=== PATIENT | female | born 1990 | race Caucasian/White ===

== ENCOUNTER 2016-11-21 05:56 | Inpatient (IN) ==
[2016-11-21] MEDS ORDERED: MAG-AL + SIM ORAL LIQUID 30ml PO PRN ×2 (05:59→13:29)
[2016-11-21] MEDS ORDERED: D5LR 1,000 ML IV PRN (05:59)
[2016-11-21] MEDS ORDERED: LR 1,000 ML IV PRN (05:59)
[2016-11-21] MEDS ORDERED: ACETAMINOPHEN 500 MG TABLET PO PRN ×2 (05:59→13:29)
[2016-11-21] MEDS ORDERED: CARBOPROST 250 MCG/ML INJECTION IM PRN (05:59)
[2016-11-21] MEDS ORDERED: OXYTOCIN DRIP 30 UNIT/500 ML ML IV PRN (05:59)
[2016-11-21] MEDS ORDERED: LIDOCAINE 1% (10mg/ml) 2mL INJ PF SDV ID PRN (05:59)
[2016-11-21] MEDS ORDERED: CALCIUM CARBONATE Chewable 500mg TABLET PO PRN ×2 (05:59→13:29)
[2016-11-21] MEDS ORDERED: METHYLERGONOVINE 0.2 MG/ML INJECTION IM PRN (05:59)
--- OUTSIDE RECORDS SUMMARY | 2016-11-21 06:00 | External Medical Summary | Continuity of Care Document ---
:1990 Author Organization [facility] Address [address] [place], [place] [id number] Phone Support Name Relationship Address Phone Nadira Kerr spouse [phone] [place] [address] Allergies, Adverse Reactions, Alerts Substance Reaction Severity Status No Known Drug Allergies Unknown Active Medications Medication Instructions Dosage Effective Dates Status Comments (start - stop) ORAL - Active TABLET Tylenol Extra take 2 tablet by oral 1000 MG - Active Strength 500 mg route every 6 hours tablet as needed Problems Condition Effective Dates (start - stop) Clinical Status Oth related conditions, - third trimester Encounter for suprvsn of normal - , third trimester 35 weeks gestation of - Encounter for suprvsn of normal - , second trimester 19 weeks gestation of - Oth related conditions, - third trimester Encounter for suprvsn of normal - , third trimester 31 weeks gestation of - Oth related conditions, - third trimester Encounter for suprvsn of normal - , third trimester 33 weeks gestation of - Encntr screen for infections w sexl - mode of transmiss Encounter for screening for oth - infec/parastc diseases Encounter for suprvsn of normal - , first trimester Encounter for screening of - mother 11 weeks gestation of - Encounter for suprvsn of normal - , second trimester 16 weeks gestation of - Encounter for suprvsn of normal - , second trimester 19 weeks gestation of - Encounter for suprvsn of normal - , second trimester 23 weeks gestation of - Encounter for suprvsn of normal - , second trimester 25 weeks gestation of - Encounter for suprvsn of normal - , second trimester 27 weeks gestation of - Encounter for suprvsn of normal - , third trimester 37 weeks gestation of - Encounter for suprvsn of normal - , third trimester 29 weeks gestation of - 36 weeks gestation of - Encounter for suprvsn of normal - , third trimester Procedures Procedure Date OB Visit No Charge Cult, pathgnc orgnsm, screen Results Test Name Date and Time Measure Units Reference Range Abnormal Flag Comments Panel Description: STREPTOCOCCUS, GROUP B CULTURE STREPTOCOCCUS, GROUP SEE NOTE STREPTOCOCCUS, GROUP B CULTURE B CULTURE 10:12:00 MICRO NUMBER: [id number] TEST STATUS: FINAL SPECIMEN SOURCE: VAGINAL/ANORECTAL SPECIMEN QUALITY: ADEQUATE RESULT: No group B Streptococcus isolatedREPORT COMMENT:FASTING:UNKNOWNTest performed at [facility] [id number] [place] [address]Axlnmrgu: PABLO GUARDADO DO,MPH Advance Directives Directive Yes / No Effective Date File Name Unknown Encounters Encounter Practice Location Reason(s) Diagnoses Date Provider Care Team Description For Visit Members Neema Herring Encounter for Yadira Referring In Womens suprvsn of normal 7-201 Sarah. Provider: Health PA, , third 7 [address] [email or web address] weeks Medical Ronak, 700 1522, gestation of [facility] Malina, , [facility] [address] [place], 120, [place] 120, [id number], Nima Herring, [place], tel:[phone] [id number] , [place]. tel: tel: [phone] Neema Herring 36 weeks Malik-1 Yadira Referring In Womens gestation of 0-201 Sarah. Provider: Health BRIDGER, pregnancyEncounte 7 [address] [facility], 700 1522, normal , [facility], third trimester , [facility] [address] [place], 120, [place] 120, [id number], Nima Herring, [place], tel: [phone]. , [place]. tel: tel: [phone] Neema Herring [facility] Malik-0 Yadira Referring In Womens related 3-201 Sarah. Provider: Health BRIDGER, conditions, third 7 700 [address] [facility], 700 1522, r for mikel [facility], normal , , [facility] [address] [place], third [email or web address] 120, [place] 120, [id number], weeks gestation Nima Herring, [place] of [place], tel: [phone]. , [place]. tel: tel: [phone] Neema Herring [facility] Oscar-1 Yadira Referring In Womens related 9-201 Sarah. Provider: José Manuel SPARKS, conditions, third 7 [address] [facility] 700 [facility]22, r for suprcarlos [facility], normal , , [facility] [address] [place], third [email or web address] 120, [place] 120, [id number], weeks gestation Nima Herring, [place], tel: [phone]. , [place]. tel: tel: [phone] Neema Herring [facility] Oscar-0 Yadira Referring In Womens related 5-201 Sarah. Provider: José Manuel SPARKS, conditions, third 7 700 [address] [facility], 700 1522, r for mikel [facility], normal , , [facility] [address] [place], third [email or web address] 120, [place] 120, [id number], weeks gestation Nima Herring, [place], tel: [phone]. , [place]. tel: tel: [phone] Neema Herring Encounter for May-2 Yadira Referring In Womens suprvsn of normal 2-201 Sarah. Provider: Health BRIDGER, , third 7 700 [address] [email or web address] weeks Medical Ronak, 700 1522, gestation of [facility], , [facility] [address] [place], 120, [place] 120, [id number], Nima Herring, [place], [place], tel: [phone]. , [place]. tel: tel: [phone] Neema Herring Encounter for May-0 Yadira Referring In Womens suprvsn of normal 8-201 Sarah. Provider: Health BRIDGER, , second 7 700 [address] [email or web address] weeks Medical Ronak, 700 1522, gestation of [facility], , [facility] [address] [place], 120, [place] 120, [id number], Nima Herring, [place], [place], tel: [phone]. , [place]. tel: tel: [phone] Neema Herring Encounter for Apr-1 Yadira Referring In Womens suprvsn of normal 9-201 Sarah. Provider: Health BRIDGER, , second 7 700 [address] [email or web address] weeks Medical Ronak, 700 1522, gestation of [facility], , [facility] [address] [place], 120, [place] 120, [id number], Nima Herring, [place], [place], tel: [phone]. , [place]. tel: tel: [phone] Neema Herring Encounter for Apr-0 Yadira Referring In Womens suprvsn of normal 5-201 Sarah. Provider: Health BRIDGER, , second 7 [address] [email or web address] weeks Medical Ronak, 700 1522, gestation of [facility], , [facility] [address] [place], 120, [place] 120, [id number], Nima Herring, [place], [place], tel:[phone]. , [place]. tel: tel: [phone] Neema Herring Encounter for Mar-0 Yadira Referring In Womens suprvsn of normal 8-201 Sarah. Provider: José Manuel SPARKS, , second 7 700 [address] [email or web address] weeks Medical Ronak, 700 1522, gestation of [facility], , [facility] [address] [place], 120, [place] 120, [id number], Nima Herring, [place], [place], tel: [phone]. , [place]. tel: tel: [phone] Neema Herring Encounter for Mar-0 Yadira Referring In Womens Ultrasound suprvsn of normal 8-201 Sarah. Provider: José Manuel SPARKS, , second 7 700 [address] [email or web address] weeks Medical Ronak, 700 1522, gestation of [facility], , [facility] [address] [place], 120, [place] 120, [id number], Nima Herring, [place], [place], tel: [phone]. , [place]. tel: tel: [phone] Neema Herring Encounter for Feb-1 Yadira Referring In Womens suprvsn of normal 4-201 Sarah. Provider: José Manuel SPARKS, , second 7 700 [address] [email or web address] weeks Medical Ronak, 700 1522, gestation of [facility], , [facility] [address] [place], 120, [place] 120, [id number], Nima Herring, [place], [place], tel: [phone]. , [place]. tel: tel: [phone] Neema Herring Encntr screen for Elmer-1 Yadira Referring In Womens infections w sexl 1-201 Sarah. Provider: José Manuel SPARKS, mode of 7 700 [address] transmissEncounte Medical Ronak, 700 1522, r for screening [facility], for oth , [facility] [address] [place], infec/parastc 120, [place] 120, [id number], diseasesEncounter Nima Weston, for suprvsn of [place], tel: normal , [phone]. [facility] , . tel: trimesterEncounte tel: [phone] r for [phone] screening of weeks gestation of Neema Herring Jul- Ronak In Womens 0-201 Marisol. [facility], [address] [facility] [address] [place] [address] [place], [place], 120, [id number], [facility] [place], tel: [phone] , . tel: [phone] Family History Family Member Diagnosis Age At Onset No family history of Colon Cancer No family history of Breast Cancer No family history of Cardiovascular Disease No family history of Osteoporosis No family history of Kidney Problems No family history of Thyroid Disorder No family history of Ovarian Cancer No family history of Diabetes No family history of Lung Disease No family history of Stroke No family history of Epilepsy No family history of Hypertension Immunizations Vaccine Date Status Comments Tdap completed Source: New Immunization Record Payers Payer name Insurance type Covered green party ID Authorization(s) [facility] [id number] [facility] [id number] Social History Type Description Quantity Date Captured Alcohol Use Details No Caffeine Use Details Unknown Tobacco Use Status Unknown Smoking Status Never smoker Vital Signs Date / Height Weight BMI Pulse Blood Temperature Respiratory Body Head BMI Time: Rate Pressure Rate Surface Circumference percentile Area Unknown Chief Complaint And Reason For Visit Unknown Chief Complaint And Reason For Visit Reason For Referral Reason For Referral Unknown Plan Of Care Date Type Action Status Appointment Kristen Kerr BOOKED Future Order: Radiology Order Complete OB Ultrasound > 14 Weeks Ordered ([id number]) Date Type Problem Goal Intervention Status Start Date Unknown. History Of Present Illness Encounter Date Complaint History Of Present Illness This patient has no known history of present illness Functional Status Encounter Date Functional Assessment Cognitive Assessment Unknown Medications Administered Medication Instructions Dosage Effective Dates (start - stop) Status Comments Drug Treatment Unknown Instructions Date Instruction Additional Information HIV and other routine tests risk factors identified by history anticipated course of care nutrition and weight gain counseling, special diet toxoplasmosis precautions (cats / raw meat) sexual activity exercise indications for ultrasound influenza vaccine environmental / work hazards new ob handbook travel tobacco (ask, advise, assess, assist and arrange) alcohol illicit / recreational drugs use of any medications (including supplements, vitamins, herbs, OTC drugs) smoking counseling domestic violence seat belt use childbirth classes / hospital facilities hospital registration genetic testing
--- OUTSIDE RECORDS SUMMARY | 2016-11-21 06:00 | External Medical Summary ---
:1990 Author Organization [facility]. Summary purpose CCDA Sent to [facility] Chief Complaint and Reason for Visit No authorized Reason for Visit (Admitting Diagnosis) is available for this visit. Problem list No authorized problems tracked for continuity of care are available for this visit. Encounters No authorized problems tracked for encounter diagnoses are available for this visit. Medications No medications recorded for this patient visit Allergies, adverse reactions, alerts Allergen Category Ingredient Status Reaction Severity Onset No Known Allergies No Known Allergies No Known Allergies Active Immunizations No immunizations recorded for this patient visit Relevant diagnostic tests and/or laboratory data No authorized results are available for this patient visit History of procedures Procedure Code Code Type Description Date Performed Performing Physician 90978 CPT-4 THERAPEUTIC EXERCISES 09-28-2016 KEVAN SHIRLEY 60974 CPT-4 PT EVAL LOW COMPLEX 20 09-28-2016 [place]EVAN SHIRLEY [place] 50250 CPT-4 THERAPEUTIC EXERCISES 10-03-2016 KEVAN SHIRLEY 40283 CPT-4 MANUAL THERAPY 10-03-2016 KEVAN SHIRLEY 61949 CPT-4 THERAPEUTIC EXERCISES 10-14-2016 KEVAN SHIRLEY 11273 CPT-4 MANUAL THERAPY 10-14-2016 KEVAN SHIRLEY 83089 CPT-4 THERAPEUTIC EXERCISES 10-21-2016 KEVAN SHIRLEY Functional status No functional or cognitive status observations are available for this visit. Vital signs No authorized vital signs are available for this visit. Social history No Social History or smoking status observations were recorded for this visit. ( Unknown if ever smoked.) Treatment Plan No treatment plan text is available for this visit. Hospital discharge instructions No discharge instruction text is available for this visit.
--- OUTSIDE RECORDS SUMMARY | 2016-11-21 06:01 | External Medical Summary | Continuity of Care Document ---
:1990 Author Organization [facility] Allergies Active Description Code Type Severity Reaction Onset Reported/ Identified Relationship Clinical to Patient Status Yes No Known 48149 3 N/A N/A Drug 0 Allergies Yes No Known 60186 NK N/A N/A 04/18/2014 Confirmed Allergies 388 or Verified Medications Medication Packaging Start Date Stop Date Route Dosage Sig DICLEGIS Tablet 05/04/2016 06/22/2016 take 1 tablet by oral route every day in the morning, 1 tablet in the mid-afternoon, and 2 tablets at bedtime ZOFRAN Tablet 05/11/2016 06/22/2016 take 1 tablet by ORAL route every 8 hours as needed for nausea Problems Date Dx Coded Attending Type Code Diagnosis Diagnosed By 04/30/2013 NOY LOPEZ 054.9 HERPES SIMPLEX NOS 09/09/2013 NOY LOPEZ 640.00 THREATENED ABORT-UNSPEC 09/17/2013 Anaya SHANKAR MD V22.1 SUPERVIS OT NORMAL KAUSHIK R PREG 01/27/2014 Anaya SHANKAR MD V22.1 SUPERVIS OT NORMAL KAUSHIK R PREG 01/30/2014 Anaya SHANKAR MD 790.29 OTHER ABNORMAL GLUCOSE KAUSHIK R 01/30/2014 DORIE RASCON MD D V22.1 SUPERVIS OT NORMAL KAUSHIK R PREG 03/14/2014 Anaya SHANKAR MD V22.1 SUPERVIS OT NORMAL KAUSHIK R PREG 04/19/2014 SHIRLEY HAIDER MD 650 NORMAL DELIVERY 04/19/2014 SHIRLEY HAIDER MD 664.11 DEL W 2 DEG LACERAT-DEL 04/19/2014 SHIRLEY HAIDER MD 788.20 RETENTION OF URINE, UNSP 04/19/2014 SHIRLEY HAIDER MD V27.0 DELIVER-SINGLE LIVEBORN 06/29/2016 Sarah May Z34.82 Encounter for suprvsn of normal , second trimester 06/29/2016 Sarah May Z3A.19 19 weeks gestation of 10/21/2016 SARAH MAY MD M25.551 Pain in right hip 10/21/2016 SARAH MAY MD M25.552 Pain in left hip 10/21/2016 SARAH MAY MD R53.1 Weakness Procedures Code Description [place] [address] COMPLETE CBC, AUTOMATED GARETH SPARKS, NOY L 04/30/2013 93559 BLOOD TYPING, ABO GARETH SPARKS, NOY L 09/09/2013 39708 BLOOD TYPING, RH (D) GARETH SPARKS, NOY L 09/09/2013 18852 BLOOD TYPING, PATIENT SERUM GARETH SPARKS, NOY Violeta 09/09/2013 82610 BLOOD TYPING, ABO DORIE RASCON MD, KAUSHIK Morrissey 09/17/2013 68010 BLOOD TYPING, RH (D) DORIE RASCON MD, KAUSHIK Morrissey 09/17/2013 30936 BLOOD TYPING, PATIENT SERUM DORIE RASCON MD, KAUSHIK Morrissey 09/17/2013 70660 ROUTINE VENIPUNCTURE DORIE RASCON MD, KAUSHIK Morrissey 01/27/2014 03204 ASSAY, GLUCOSE, BLOOD QUANT DORIE RASCON MD, KAUSHIK Morrissey 01/27/2014 22736 GLUCOSE TEST DORIE RASCON MD, KAUSHIK Morrissey 01/27/2014 13713 HEMOGLOBIN DORIE RASCON MD, KAUSHIK Morrissey 01/27/2014 09093 ROUTINE VENIPUNCTURE DORIE RASCON MD, KAUSHIK Morrissey 01/30/2014 88655 GLUCOSE TOLERANCE TEST (GTT) DORIE RASCON MD, KAUSHIK Morrissey 01/30/2014 85685 GTT-ADDED SAMPLES DORIE RASCON MD, KAUSHIK Morrissey 01/30/2014 65551 HEMOGLOBIN DORIE RASCON MD, KAUSHIK Morrissey 03/14/2014 7359 MANUAL ASSIST DELIV SHIRLEY MAHONEY MD 04/18/2014 7569 REPAIR OB LACERATION SHIRLEY MAHONEY MD 04/18/2014 98214 Antepartum care only, 4-6 visits 05/04/2016 78217 Ultrasnd exam of preg uterus, compl 06/29/2016 00465 THERAPEUTIC EXERCISES SARAH MAY MD 09/28/2016 97254 PT EVAL LOW COMPLEX 20 MIN SARAH MAY MD 09/28/2016 04290 THERAPEUTIC EXERCISES SARAH MAY MD 10/03/2016 96319 MANUAL THERAPY SARAH MAY MD 10/03/2016 72771 THERAPEUTIC EXERCISES SARAH MAY MD 10/14/2016 06056 MANUAL THERAPY SARAH MAY MD 10/14/2016 05603 THERAPEUTIC EXERCISES SARAH MAY MD 10/21/2016 48461 Immuniz admnin, 1 vac, sngl/combo 10/31/2016 66983 TDAP VACCINE >7 IM 10/31/2016 Results Test Result Range CBC - 04/30/13 10:50 Eos # 0.07 x10^3 0-0.5 Eos % 0.8 % 0-4 HCT 39.9 % 37.0-47.0 HGB 13.5 G/DL 12.0-16.0 Lymph # 2.13 x10^3 1.0-4.0 Lymph % 24.5 % 20-50 MCH 30.4 PG 27.0-31.0 MCHC 33.8 G/DL 32.0-36.0 MCV 89.9 FL 81-99 [place] # 0.61 x10^3 0.0-0.8 [place] % 7.0 % 1.0-9.0 MPV 10.2 FL 6.0-10.0 Platelet 251 x10^3 150-400 RBC 4.44 x10^3 4.20-5.40 RDW 11.7 % 12-15 WBC 8.68 x10^3 4.8-10.8 Baso # 0.02 x10^3 0-0.2 Baso % 0.2 % 0-2 Neut % 67.5 % 50-70 Neut # 5.85 x10^3 3.0-7.0 ABO Type - 09/09/13 10:50 ABO Type A RH Type - 09/09/13 10:50 RH Type POS Antibody Screen - 09/09/13 10:50 Antibody Screen NEG Negative ABO Type - 09/17/13 16:09 ABO Type A RH Type - 09/17/13 16:09 RH Type POS Antibody Screen - 09/17/13 16:09 Antibody Screen NEG Negative HGB - 01/27/14 08:10 HGB 13.4 G/DL 12.0-16.0 Gluc Gris OB - 1 Hr - 01/27/14 09:32 Glucose Fasting 74 <=105 Glucose Tolerance 1 Hr OB 145 <=140 Gluc Tolerance OB 3 Hr - 01/30/14 11:35 Glucose 1Hr 161 <=190 Glucose 2 Hr 130 <=165 Glucose 3 Hr 109 <=140 Glucose Fasting 73 <=105 HGB - 03/15/14 09:32 HGB 11.9 G/DL 12.0-16.0 CBC - 04/18/14 01:17 Eos # 0.07 x10^3 0-0.5 Eos % 0.7 % 0-4 HCT 36.9 % 37.0-47.0 HGB 12.7 G/DL 12.0-16.0 Lymph # 2.36 x10^3 1.0-4.0 Lymph % 23.0 % 20-50 MCH 31.5 PG 27.0-31.0 MCHC 34.4 G/DL 32.0-36.0 MCV 91.6 FL 81-99 [place] # 0.83 x10^3 0.0-0.8 [place] % 8.1 % 1.0-9.0 MPV 11.5 FL 6.0-10.0 Platelet 198 x10^3 150-400 RBC 4.03 x10^3 4.20-5.40 RDW 12.3 % 12-15 WBC 10.27 x10^3 4.8-10.8 Baso # 0.02 x10^3 0-0.2 Baso % 0.2 % 0-2 Neut % 68.0 % 50-70 Neut # 6.99 x10^3 3.0-7.0 HCT - 04/18/14 15:18 HCT 33.2 % 37.0-47.0 HGB - 04/18/14 15:18 HGB 11.3 G/DL 12.0-16.0 Encounters ACCT No. Visit Discharge Status Pt. Type Provider Facility Loc./Unit Complaint Date/Time [id number] 09/28/2016 10/21/2016 DIS Outpaticatalina MAY 2 17:12:00 23:59:00 SARAH hawthorne MD [id number] 04/21/2014 04/21/2014 DIS Outpatien FAST Tay DELA CRUZ 11:10:00 11:10:00 t [facility] [id number] 04/18/2014 04/19/2014 DIS Inpatient FAST Tay DELA CRUZ 00:30:00 17:40:00 [facility] [id number] 03/15/2014 03/15/2014 DIS Outpatien ULLOM [place]AB 08:54:00 08:54:00 t TARAH Wisdom MD, [facility] R [id number] 01/30/2014 01/30/2014 DIS Outpatien ULLOM [place] ALAB 08:13:00 08:13:00 t TARAH Wisdom MD, [facility] R [id number] 01/27/2014 01/27/2014 DIS Outpatien ULLOM [place] ALAB 08:09:00 08:09:00 t TARAH Wisdom MD, [facility] R [id number] 09/18/2013 09/18/2013 DIS Outpatien ULLOM [place] ALAB 07:44:00 07:44:00 t TARAH Wisdom MD, [facility] R [id number] 09/09/2013 09/09/2013 DIS Outpatien SERVIN [place] ALAB 13:28:00 13:28:00 marine [facility] [id number] 04/30/2013 04/30/2013 DIS Outpatien SERVIN [place] ALAB 13:46:00 13:46:00 marine [facility] [id number] 10/22/2016 ACT Outpatien FERN 0 00:01:00 SARAH hawthorne MD
[2016-11-21 06:15] VITALS: BMI 27.8
--- NOTE | 2016-11-21 08:25 | Anesthesia Preoperative Report ---
Anesthesia Epidural/Spinal Rec - Date and Time Date: 11/21/16 Preoperative Diagnosis: G2:P1 Procedure: Labor Epidural Plan: Epidural - Vital Signs Vital Signs: Temperature 98.2 F 11/21/16 06:36 Pulse Rate 82 11/21/16 06:36 Respiratory Rate 20 11/21/16 06:36 Blood Pressure 119/73 11/21/16 06:36 Pulse Oximetry 100 11/21/16 06:36 Oxygen Delivery Method Room Air NPO since: 05011/21/16 /Para: P:1 Heart Rate: 140 - Medictaions & Allergies Inpatient Medications: Current Medications Acetaminophen (Tylenol) 500 - 1,000 mg PO Q4H PRN PRN Reason: Pain Al Hydroxide/Mg Hydroxide (Maalox Plus) 30 ml PO Q3H PRN PRN Reason: Indigestion Calcium Carbonate (Tums) 500 - 1,000 mg PO Q2H PRN PRN Reason: Indigestion Carboprost Tromethamine (Hemabate) 250 mcg IM O PRN PRN Reason: .Downtime Dextrose/Lactated Ringer's (Dextrose 5%-Lactated Ringers) 1,000 mls @ 125 mls/ hr IV .Q8H PRN PRN Reason: Labor Last Admin: 11/21/16 06:56 Dose: 125 mls/hr Oxytocin (Pitocin Drip) 30 unit in 500 mls @ 2 mls/hr IV .Q24H PRN; Protocol PRN Reason: Induction/Augmentation Last Admin: 11/21/16 06:54 Dose: 2 mls/hr Lactated Ringer's (Lactated Ringers) 1,000 mls @ 1,000 mls/hr IV .Q1H PRN PRN Reason: as directed Last Admin: 11/21/16 06:58 Dose: 1,000 mls/hr Lidocaine HCl (Xylocaine-Mpf 1% Vial) 0.2 mg ID O PRN PRN Reason: IV Start Methylergonovine Maleate (Methergine) 0.2 mg IM O PRN Misoprostol (Cytotec) 800 mcg NH ONCE PRN Allergies/Adverse Reactions: Allergies Allergy/AdvReac Type Severity Reaction Status Date / Time No Known Allergies Allergy Verified 11/15/16 16:11 - Medical History Other History: Reports: Now (39weeks and 6 days) - Surgical History Hx Family Anesthesia Reaction: No History of Motion Sickness: No - Social History Second Hand Exposure: No Substance Use Type: does not use Alcohol Intake Frequency: does not drink - Pertinent Findings Lab Data: CBC and BMP 11/21/16 06:19 EKG Rhythm: Normal Sinus Rhythm - Physical Exam Respiratory Exam: lungs clear Cardiovascular Exam: regular rate and rhythm - Airway Assessment Mallampati Score: II TMD: 2 Fingerbreadths Neck Extension: good Overall Assessment: may be difficult intubation - ASA ASA Score: 2 - Discussion Discussion: Discussed risks/options/alternatives of anesthesia and questions answered. Patient consents. Nursing pain assessment noted. Anesthesia Discussion: spouse Attestation Statement: Prior to the delivery of any anesthetic medication, I examined the patient, developed the plan, obtained the patient's consent and discussed the risk and benefits of the procedure with the patient/guardian.
[2016-11-21] MEDS ORDERED: HYDROCORTISONE 2.5% CREAM 30gm RECTALLY PRN (13:29)
[2016-11-21] MEDS ORDERED: DiphenhydrAMINE 25 MG CAPSULE PO PRN (13:29)
[2016-11-21] MEDS ORDERED: SALINE FLUSH 10ml SYRINGE IVF PRN (13:29)
[2016-11-21] MEDS ORDERED: OXYTOCIN DRIP 30 UNIT/500 ML ML IV SCH ×2 (13:30)
--- NOTE | 2016-11-21 13:42 | Labor and Delivery Note ---
DATE OF DELIVERY: 11/21/2016 BRIEF DESCRIPTION Ms. Kerr progressed very well in first stage of labor. She began to push with excellent effort. After a short while of pushing she delivered the head in the OA position. Baby was LOP. There was a loose nuchal cord x1 that was reduced. Baby was bulb suctioned on the perineum then with a further push baby was delivered in total. Baby was then further bulb suctioned and placed on mother's abdomen for care by the nurses. After a little over 2 minutes the cord was doubly clamped. It was cut by the baby's father Tyrone. This is a liveborn male with Apgars of 9/9/9. Weight was 6 pounds 12.8 ounces. In a few moments the placenta delivered spontaneously intact. It had a normal configuration and normal-appearing three-vessel cord. There was a second- degree midline perineal laceration was repaired in the usual fashion with a 2-0 Vicryl. Total blood loss was approximately 400 cc. At the time of this dictation mother and baby are doing well. ABIMAEL
[2016-11-21] MEDS: IBUPROFEN 800 MG TABLET PO PRN (15:09)
[2016-11-21] MEDS ORDERED: ROPIVACAINE 0.2% 2MG/ML INJ 40 MG, SUFentanil 50 MCG in NS 100 ML ID ONE (17:00)
[2016-11-21] MEDS: HYDROCODONE/APAP 5mg/325mg TABLET PO PRN (19:49)
[2016-11-22] MEDS: IBUPROFEN 800 MG TABLET PO PRN (06:23)
[2016-11-22] MEDS: HYDROCODONE/APAP 5mg/325mg TABLET PO PRN ×2 (06:24→11:45)
[2016-11-22] MEDS ORDERED: ACETAMINOPHEN 500 MG TABLET PO PRN (06:30)
[2016-11-22 07:56] VITALS: RESP 16; O2SAT 99
--- NOTE | 2016-11-22 08:06 | Discharge Instructions ---
Discharge Plan - Med Rec/Dispo Prescriptions: New Hydrocodone/APAP 5/325 [Llano 5/325] 1 tab PO Q4H PRN #20 tablet PRN Reason: Pain Ibuprofen [Motrin] 800 mg PO Q8H PRN #30 tablet PRN Reason: Pain Docusate Calcium [Surfak] 240 mg PO DAILY #30 capsule No Action Vitamin Tablet - Disposition 01 Discharged Home, Self-Care
[2016-11-22] MEDS ORDERED: DOCUSATE CALCIUM 240 MG CAPSULE PO SCH (09:00)
[2016-11-22] MEDS ORDERED: PRENATAL VITAMIN TABLET PO SCH (09:00)
[2016-11-22 14:42] VITALS: BP 118/71; PULSE 65; TEMP 97.5
== END 2016-11-22 18:00 | disposition home or self-care (01) | DRG 775 ==
LOC: MC 05:56
PROVIDERS: ADMIT Obstetrics & Gynecology; ATTEND Obstetrics & Gynecology